=== PATIENT | male | born 1995 | race Hispanic/Latino ===

== ENCOUNTER 2018-08-26 07:46 | Inpatient (IN) | payer SELFPAY ==
[~2018-08-26] VITALS: Ht 162.6 cm; Wt 50.8 kg
[2018-08-26 08:38] LABS: BASOPHILS % (AUTO) 0.4 % (0.0-5.0); EOSINOPHILS % (AUTO) 0.4 % (0.0-8.0); HEMATOCRIT 42.2 % (42-54); LYMPHOCYTES % (AUTO) 17.8 % (21.0-51.0); MEAN CORPUSCULAR HEMOGLOBIN 29.3 pg (27.0-33.0); MEAN CORPUSCULAR HGB CONC 33.4 g/dL (32.0-36.0); MEAN CORPUSCULAR VOLUME 87.7 fL (79-99); MONOCYTES % (AUTO) 5.1 % (3.0-13.0); NEUTROPHILS % (AUTO) 76.3 % (40.0-77.0); NUCLEATED RED BLOOD CELLS 0.1 % (0.0-0.19); PLATELET COUNT (AUTO) 316 K/uL (130-400); RED BLOOD CELL COUNT(AUTO) 4.82 MIL/uL (4.50-6.20); RED CELL DISTRIBUTION WIDTH 13.8 % (11.0-15.5); WHITE BLOOD COUNT (AUTO) 20.9 K/uL (4.8-10.8)
[2018-08-26] MEDS ORDERED: KETOROLAC TROMETHAMINE 60 MG/2 ML VIAL ONE (08:43)
[2018-08-26] MEDS ORDERED: SODIUM CHLORIDE 0.9% 1000ML 1,000 ML IV ONE (08:43)
[2018-08-26 08:48] LABS: CREATININE 1.2 mg/dL (0.5-1.5); POTASSIUM 3.1 mmol/L (3.5-5.1)
[2018-08-26 08:55] LABS: ALBUMIN 4.2 g/dL (3.5-5.0); BILIRUBIN,TOTAL 0.3 mg/dL (0.2-1.0); TOTAL PROTEIN, SERUM 7.5 g/dL (6.0-8.3)
[2018-08-26] MEDS ORDERED: IOHEXOL-350 75 ML VIAL IV ONE (10:12)
[2018-08-26 10:27] LABS: APPEARANCE,URINE CLOUDY (CLEAR); BILIRUBIN,URINE SMALL (NEGATIVE); COLOR,URINE YELLOW (YELLOW); GLUCOSE, URINE (UA) NEGATIVE (NEGATIVE); KETONES,URINE NEGATIVE (NEGATIVE); LEUKOCYTE ESTERASE ,URINE TRACE (NEGATIVE); NITRATE,URINE NEGATIVE (NEGATIVE); OCCULT BLOOD,URINE LARGE (NEGATIVE); PROTEIN,URINE 100 mg/dL (NEGATIVE); UROBILINOGEN,URINE 0.2 mg/dL (0.2-1.0)
[2018-08-26 10:36] LABS: AMPHET/METH SCREEN,URINE NEGATIVE (NEGATIVE); BARBITURATE SCREEN, URINE NEGATIVE (NEGATIVE); BENZODIAZEPINES SCREEN,URINE NEGATIVE (NEGATIVE); CANNABINOID SCREEN,URINE POSITIVE (NEGATIVE); COCAINE SCREEN,URINE POSITIVE (NEGATIVE); OPIATE SCREEN,URINE NEGATIVE (NEGATIVE); PHENCYCLIDINE SCREEN,URINE NEGATIVE (NEGATIVE)
[2018-08-26] MEDS ORDERED: LEVOFLOXACIN 500 MG/D5W 100 ML 100 ML ONE (10:36)
[2018-08-26 10:41] LABS: BACTERIA,URINE Few /HPF (None Seen); MUCUS,URINE Many LPF (None Seen); RBC,URINE 26-50 /HPF (0-1); SQUAMOUS EPITHELIAL CELL,UR 0-2 /HPF (0-2)
[2018-08-26] MEDS ORDERED: ZOSYN 3.375GM+NS 50ML 50 ML IV ONE (13:03)
[2018-08-26] MEDS: SODIUM CHLORIDE 0.9% 1000ML 1,000 ML IV SCH ×2 (13:32→23:32)
[2018-08-26] MEDS ORDERED: MORPHINE SULFATE 4 MG/1ML SYG IV PRN (13:45)
[2018-08-26] MEDS ORDERED: MORPHINE SULFATE 2 MG/ML 1ML SYG IV PRN (13:45)
[2018-08-26] MEDS ORDERED: ONDANSETRON HCL 4 MG/2 ML VIAL IV PRN (13:45)
[2018-08-26 15:15] VITALS: BP 130/68
--- NOTE | 2018-08-26 15:26 | NUR ---
Admitted to the floor from the ER with c/o abdominal pain, nausea and vomiting yesterday Addendum: 08/26/18 at 1538 by CHING AMATO RN RN Amended: Links added.
--- NOTE | 2018-08-26 15:36 | NUR ---
Offered to have security take his colleen vazquez. refused. Addendum: 08/26/18 at 1538 by CHING AMATO RN RN Amended: Links added.
--- NOTE | 2018-08-26 16:00 | NUR ---
GARRISON Garcia for Dr. Neumann in to see pt. Ordered a HIDA scan.
[2018-08-26] MEDS ORDERED: ZOSYN 3.375GM+NS 50ML 50 ML IV SCH (16:02)
[2018-08-26 20:00] VITALS: BP 132/83
[2018-08-26] MEDS ORDERED: LIDOCAINE HCL-MPF 1% 2ML VIAL IVP PRN (20:45)
[2018-08-26] MEDS ORDERED: POTASSIUM CHLORIDE 10% ELIXIR 20 MEQ/15 ML UDCUP PO PRN (20:45)
[2018-08-26] MEDS ORDERED: POTASSIUM CHLORIDE 20MEQ/100ML 100 ML IV PRN (20:45)
[2018-08-26] MEDS: ZOSYN 3.375GM+NS 50ML 50 ML IV SCH (22:00)
[2018-08-26] MEDS: FAMOTIDINE/PF 20 MG/2 ML VIAL IV SCH (22:01)
[2018-08-26] MEDS: POTASSIUM CHLORIDE 20 MEQ ERTAB PO PRN (22:19)
[2018-08-27 00:13] VITALS: BP 101/68
[2018-08-27] MEDS: POTASSIUM CHLORIDE 20 MEQ ERTAB PO PRN (00:15)
[2018-08-27 03:48] VITALS: BP 114/57
[2018-08-27] MEDS: ZOSYN 3.375GM+NS 50ML 50 ML IV SCH ×2 (05:28→13:00)
[2018-08-27] MEDS: SODIUM CHLORIDE 0.9% 1000ML 1,000 ML IV SCH (05:29)
[2018-08-27 05:41] LABS: HEMATOCRIT 40.2 % (42-54); MEAN CORPUSCULAR HEMOGLOBIN 29.2 pg (27.0-33.0); MEAN CORPUSCULAR HGB CONC 33.3 g/dL (32.0-36.0); MEAN CORPUSCULAR VOLUME 87.7 fL (79-99); PLATELET COUNT (AUTO) 281 K/uL (130-400); RED BLOOD CELL COUNT(AUTO) 4.58 MIL/uL (4.50-6.20); WHITE BLOOD COUNT (AUTO) 6.7 K/uL (4.8-10.8)
[2018-08-27 06:07] LABS: ALBUMIN 3.4 g/dL (3.5-5.0); BILIRUBIN,TOTAL 0.4 mg/dL (0.2-1.0); CREATININE 1.1 mg/dL (0.5-1.5); POTASSIUM 4.5 mmol/L (3.5-5.1); TOTAL PROTEIN, SERUM 6.6 g/dL (6.0-8.3)
[2018-08-27 08:12] VITALS: BP 126/56
[2018-08-27] MEDS: FAMOTIDINE/PF 20 MG/2 ML VIAL IV SCH (08:53)
--- NOTE | 2018-08-27 09:55 | NUR ---
+UDS Sw recd data trigger for pt + UDS for THC and Cocaine. Sw met with pt who states he and common law have 3 kids, 5,3,6month and another on [address]. Pt works and is independent. 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 Pt states that he was a much heavier user in past, but continues to use 2 to 3x a week. Pt states drugs are easily available in his neighborhood. Pt states he has been to rehab at [facility] twice, but longest he has been clean is 3months. Pt knows he needs to stop for kids but can't do it. Pt refused resources offered.
[2018-08-27 11:57] VITALS: BP 121/72
--- NOTE | 2018-08-27 13:20 | NUR ---
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 facesheet updated with grandmothers name dcp home later --cm came ot see pt alone and gave counsellin re cessation of drug use and effects of cocaine on heart. pt voiced poor understanding of consequences. cm to follow Addendum: 08/27/18 at 1936 by TOMASA BUNN RN CM Amended: Links added.
[2018-08-27 15:41] VITALS: BP 119/72
== END 2018-08-27 18:50 | disposition home or self-care (01) | DRG 445 ==
LOC: EDH 07:46 → EDHIP 07:47 → 3BH 15:01
PROVIDERS: ADMIT Internal Medicine; ATTEND Internal Medicine
DX: K81.9 Cholecystitis, unspecified (principal); N39.0 Urinary tract infection, site not specified; K52.9 Noninfective gastroenteritis and colitis, unspecified; E87.6 Hypokalemia; F19.10 Other psychoactive substance abuse, uncomplicated; Z82.3 Family history of stroke; Z81.1 Family history of alcohol abuse and dependence; Z83.3 Family history of diabetes mellitus; Z82.49 Family history of ischemic heart disease and other diseases of the circulatory system
CPT/HCPCS: 36415; 74177; 76705; 78227; 80053; 80305; 81001; 83690; 85025; 85027; A9537; G0378; J1885; J1956; J2543; J3490; J7030; Q9967